=== PATIENT | male | born 1960 | race Caucasian/White ===

== ENCOUNTER 2021-02-19 10:41 | Inpatient (IN) | payer OTHER ==
[2021-02-19 11:20] VITALS: BMI 22.8
[2021-02-19] MEDS ORDERED: BISMUTH SUBSALICYLATE 262 MG/15 ML BTL PO PRN (12:08)
[2021-02-19] MEDS ORDERED: METHOCARBAMOL 500 MG TABLET PO PRN (12:08)
[2021-02-19] MEDS ORDERED: IBUPROFEN 400 MG TABLET (FP) PO PRN (12:08)
[2021-02-19] MEDS ORDERED: MAGNESIUM HYDROX 2400MG/30ML ORAL SUSPENSION 30 ML CUP PO PRN (12:08)
[2021-02-19] MEDS ORDERED: MAG HYDROX/AL HYDROX/SIMETH 30 ML UNIT-DOSE CUP PO PRN (12:08)
[2021-02-19] MEDS ORDERED: MENTHOL/PHENOL 1 EACH UD MM PRN (12:08)
[2021-02-19] MEDS ORDERED: MAGNESIUM CITRATE 300 ML BOTTLE PO PRN (12:08)
[2021-02-19] MEDS ORDERED: ACETAMINOPHEN 325 MG TABLET (FP) PO PRN ×2 (12:08)
[2021-02-19] MEDS ORDERED: METHADONE HCL 10 MG TABLET (FOR DETOX USE ONLY) PO ONE (12:08)
[2021-02-19] MEDS: PRENATAL VITAMINS W/ FOLIC ACID TABLET (FP) PO SCH (13:34)
[2021-02-19] MEDS: diazePAM 5 MG TABLET PO PRN (13:34)
[2021-02-19] MEDS: hydrOXYzine PAMOATE 25 MG CAPSULE (FP) PO SCH ×3 (13:34→22:26)
[2021-02-19] MEDS: diazePAM 5 MG TABLET PO SCH ×2 (17:36→22:26)
[2021-02-19] MEDS: ONDANSETRON *ODT* 4 MG TABLET SL PRN (17:37)
[2021-02-19] MEDS ORDERED: TRIMETHOBENZAMIDE HCL 200MG/2ML INJ IM ONE (17:46)
[2021-02-19] MEDS: THIAMINE HCL 100 MG TABLET (FP) PO SCH (22:26)
[2021-02-19] MEDS: traZODone HCL 100 MG TABLET (FP) PO SCH (22:26)
[2021-02-19] MEDS: MELATONIN 5 MG TABLETS PO SCH (22:26)
[2021-02-20] MEDS: hydrOXYzine PAMOATE 25 MG CAPSULE (FP) PO SCH ×5 (05:31→22:47)
[2021-02-20] MEDS: diazePAM 5 MG TABLET PO SCH ×4 (05:32→22:47)
[2021-02-20] MEDS ORDERED: METHADONE HCL 5 MG TABLET (FOR DETOX USE ONLY) ONE (08:42)
[2021-02-20] MEDS ORDERED: METHADONE HCL 10 MG TABLET (FOR DETOX USE ONLY) ONE (08:42)
[2021-02-20] MEDS ORDERED: METHADONE (DETOX) 20 MG, METHADONE (DETOX) 5 MG PO ONE (10:00)
[2021-02-20] MEDS: PRENATAL VITAMINS W/ FOLIC ACID TABLET (FP) PO SCH (10:29)
[2021-02-20 11:30] LABS: HEMATOCRIT 31.8 % (35.4-49); HEMOGLOBIN 10.2 GM/dL (11.7-16.9); MCHC 32.1 g/dl (32.0-35.9); MEAN CELL VOLUME 80.9 fl (80-96); MEAN PLT VOLUME 8.3 fl (7.5-11.1); PLATELET COUNT 176 10^3/uL (134-434); RBC 3.92 M/mm3 (4.00-5.60); RDW 17.1 % (11.9-15.9); WHITE BLOOD COUNT 4.8 K/mm3 (4.0-10.0)
[2021-02-20 11:53] LABS: ALBUMIN 3.1 g/dl (3.4-5.0); BLOOD UREA NITROGEN 16.1 mg/dL (7-18); CALCIUM 8.4 mg/dL (8.5-10.1)
[2021-02-20 11:57] LABS: CREATININE 0.8 mg/dL (0.55-1.3)
[2021-02-20 11:58] LABS: BILIRUBIN,TOTAL 0.9 mg/dL (0.2-1)
[2021-02-20 11:59] LABS: TOT PROT 6.2 g/dl (6.4-8.2)
[2021-02-20] MEDS: ONDANSETRON *ODT* 4 MG TABLET SL PRN (17:35)
[2021-02-20] MEDS: traZODone HCL 100 MG TABLET (FP) PO SCH (22:47)
[2021-02-20] MEDS: MELATONIN 5 MG TABLETS PO SCH (22:47)
[2021-02-20] MEDS: THIAMINE HCL 100 MG TABLET (FP) PO SCH (22:47)
[2021-02-21] MEDS: hydrOXYzine PAMOATE 25 MG CAPSULE (FP) PO SCH ×2 (05:21→10:51)
[2021-02-21] MEDS: diazePAM 5 MG TABLET PO SCH ×3 (05:21→23:09)
[2021-02-21] MEDS ORDERED: METHADONE HCL 10 MG TABLET (FOR DETOX USE ONLY) PO ONE (10:00)
[2021-02-21] MEDS: PRENATAL VITAMINS W/ FOLIC ACID TABLET (FP) PO SCH (10:48)
[2021-02-21] MEDS: diazePAM 5 MG TABLET PO PRN ×2 (10:48→18:43)
[2021-02-21] MEDS ORDERED: ALBUTEROL SO4 HFA INHALER IH PRN (13:29)
[2021-02-21] MEDS: cloNIDine HCL 0.1 MG TABLET PO PRN ×2 (18:44→23:08)
[2021-02-21] MEDS: hydrOXYzine PAMOATE 25 MG CAPSULE (FP) PO PRN (18:44)
[2021-02-21] MEDS: traZODone HCL 100 MG TABLET (FP) PO SCH (23:08)
[2021-02-21] MEDS: MELATONIN 5 MG TABLETS PO SCH (23:10)
[2021-02-21] MEDS: THIAMINE HCL 100 MG TABLET (FP) PO SCH (23:10)
[2021-02-22] MEDS: diazePAM 5 MG TABLET PO SCH ×2 (05:39→17:58)
[2021-02-22] MEDS ORDERED: METHADONE HCL 5 MG TABLET (FOR DETOX USE ONLY) ONE (09:34)
[2021-02-22] MEDS ORDERED: METHADONE HCL 10 MG TABLET (FOR DETOX USE ONLY) ONE (09:34)
[2021-02-22] MEDS ORDERED: METHADONE (DETOX) 10 MG, METHADONE (DETOX) 5 MG PO ONE (10:00)
[2021-02-22] MEDS: PRENATAL VITAMINS W/ FOLIC ACID TABLET (FP) PO SCH (10:27)
[2021-02-22] MEDS: hydrOXYzine PAMOATE 25 MG CAPSULE (FP) PO PRN (10:27)
[2021-02-22] MEDS ORDERED: PANTOPRAZOLE 40 MG TABLET PO ONE (11:11)
[2021-02-22] MEDS: traZODone HCL 100 MG TABLET (FP) PO SCH (22:34)
[2021-02-22] MEDS: THIAMINE HCL 100 MG TABLET (FP) PO SCH (22:34)
[2021-02-22] MEDS: MELATONIN 5 MG TABLETS PO SCH (22:34)
[2021-02-23] MEDS ORDERED: diazePAM 5 MG TABLET PO ONE (06:00)
[2021-02-23] MEDS ORDERED: METHADONE HCL 10 MG TABLET (FOR DETOX USE ONLY) PO ONE (10:00)
[2021-02-23] MEDS ORDERED: PANTOPRAZOLE 40 MG TABLET PO SCH (10:00)
[2021-02-23] MEDS: PRENATAL VITAMINS W/ FOLIC ACID TABLET (FP) PO SCH (10:17)
[2021-02-23] MEDS: hydrOXYzine PAMOATE 25 MG CAPSULE (FP) PO PRN (17:27)
[2021-02-23] MEDS: traZODone HCL 100 MG TABLET (FP) PO SCH (22:50)
[2021-02-23] MEDS: MELATONIN 5 MG TABLETS PO SCH (22:50)
[2021-02-23] MEDS: THIAMINE HCL 100 MG TABLET (FP) PO SCH (22:50)
[2021-02-24] MEDS ORDERED: METHADONE HCL 5 MG TABLET (FOR DETOX USE ONLY) PO ONE (06:00)
[2021-02-24 09:20] VITALS: BP 111/74; PULSE 110; TEMP 97.8
== END 2021-02-24 09:05 | disposition home or self-care (01) | DRG 773 ==
LOC: YASAS 10:41 → Y3N 11:58
PROVIDERS: ADMIT Allergy & Immunology; ATTEND Allergy & Immunology
PROC: HZ2ZZZZ Detoxification Services for Substance Abuse Treatment (ICD-10-PCS; principal; 2021-02-19)
DX: F11.23 Opioid dependence with withdrawal (principal); F13.230 Sedative, hypnotic or anxiolytic dependence with withdrawal, uncomplicated; F19.282 Other psychoactive substance dependence with psychoactive substance-induced sleep disorder; F19.280 Other psychoactive substance dependence with psychoactive substance-induced anxiety disorder; F39 Unspecified mood [affective] disorder; D64.9 Anemia, unspecified; J45.909 Unspecified asthma, uncomplicated; K21.9 Gastro-esophageal reflux disease without esophagitis; Z62.810 Personal history of physical and sexual abuse in childhood; Z56.0 Unemployment, unspecified
CPT/HCPCS: 36415; 71045-TC-FY; 80053; 85027; 86780; 93005; 93010; C9803; J0735; Q0162; U0003; U0005